=== PATIENT | female | born 1945 | race Two or more races ===

== ENCOUNTER 2016-08-07 23:33 | Inpatient (IN) | payer MEDICAID, MEDICARE ==
[~2016-08-07] VITALS: Ht 152.4 cm; Wt 79.4 kg
--- NOTE | 2016-08-07 23:35 | NUR ---
PT BIB [facility] WITH A C/O N/V COMMUNITY SUPPORT ASSOCIATE. 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 PT AMBULATED WITH ASSISTANCE TO THE BATHROOM. PT WAS UNABLE TO GIVE A URINE SAMPLE. PT THEN AMBULATED TO BED #4 WITH ASSISTANCE. PT WAS ASSISTED INTO BED. PT WAS PLACED ON THE MONITOR AND CONTINUOUS PULSE OX.
[2016-08-08] VITALS (8 sets, daily range): BP systolic 99–160; BP diastolic 61–82
[2016-08-08] MEDS ORDERED: IV NS 0.9% 500 ML BAG IV ONE
[2016-08-08] MEDS ORDERED: ONDANSETRON HCL/PF 4 MG/2 ML VIAL IVP ONE
--- NOTE | 2016-08-08 00:05 | NUR ---
Albert hercules in [facility] - 08/08/16 at 0039 by JENNY IV STARTED IN LAC.
--- NOTE | 2016-08-08 00:05 | NUR ---
IV STARTED IN RAC.
--- NOTE | 2016-08-08 00:10 | NUR ---
IN AND OUT CATH DONE. APPROX 5ML CLOUDY YELLOW URINE OUTPUT NOTED.
--- NOTE | 2016-08-08 00:12 | NUR ---
PT WAS ASSISTED TO A BETTER POSITION IN BED. PT REC'D WARM BLANKETS AND OVERHEAD LIGHT WAS TURNED OFF. PT KEEPS STATING: "I HAVE TO PEE". PT IS NOT ABLE TO GIVE URINE AT THIS TIME.
[2016-08-08 00:22] LABS: BASOPHILS # (AUTO) 0.1 /CMM (0.0-0.2); BASOPHILS % (AUTO) 0.4 % (0.0-2.0); EOSINOPHILS % (AUTO) 0.2 % (0.0-6.0); HEMATOCRIT 27 % (33-45); HEMOGLOBIN 8.7 g/dL (11.5-14.8); LYMPHOCYTES # (AUTO) 1.9 /CMM (0.8-4.8); LYMPHOCYTES % (AUTO) 15.5 % (20.0-44.0); MEAN CORPUSCULAR HEMOGLOBIN 27 PG (26.0-33.0); MEAN CORPUSCULAR HGB CONC 33 g/dl (31.0-36.0); MEAN CORPUSCULAR VOLUME 81 fL (82-100); MONOCYTES # (AUTO) 0.7 /CMM (0.1-1.30); MONOCYTES % (AUTO) 5.7 % (2.0-12.0); NEUTROPHILS # (AUTO) 9.5 /CMM (1.8-8.9); NEUTROPHILS % (AUTO) 78.2 % (43.0-81.0); PLATELET COUNT (AUTO) 412 /CMM (150-450); RDW COEFFICIENT OF VARIATION 16.7 (11.5-15.0); WHITE BLOOD COUNT (AUTO) 12.2 K/uL (4.3-11.0)
--- NOTE | 2016-08-08 00:22 | NUR ---
PT LEFT FOR CT VIA RNEY
[2016-08-08] MEDS ORDERED: IV NS 0.9% 500 ML IV ONE (00:24)
[2016-08-08] MEDS ORDERED: IV SET PRIMARY 1 EA INFUS.SET MC ONE ×2 (00:24→01:29)
[2016-08-08] MEDS ORDERED: ONDANSETRON HCL/PF 4 MG/2 ML VIAL ONE (00:24)
--- NOTE | 2016-08-08 00:46 | NUR ---
PT RETURNED FROM CT.
[2016-08-08 00:50] LABS: TROPONIN I < 0.017 ng/mL (0.00-0.056)
[2016-08-08 00:53] LABS: CALCIUM, SERUM 8.3 mg/dL (8.5-10.1); CARBON DIOXIDE 20 mmol/L (21-32); CHLORIDE 102 mmol/L (98-107); CREATININE 1.9 mg/dL (0.6-1.3); GLUCOSE 124 mg/dL (74-106); POTASSIUM 3.5 mmol/L (3.5-5.1); SODIUM SERUM 135 mmol/L (136-145); UREA NITROGEN, BLOOD 24 mg/dL (7-18)
[2016-08-08 00:56] LABS: ALANINE AMINOTRANSFERASE 18 U/L (12-78); ALBUMIN 2.6 g/dL (3.4-5.0); ALKALINE PHOSPHATASE 126 U/L (46-116); ASPARTATE AMINOTRANSFERASE 15 U/L (15-37); BILIRUBIN,DIRECT 0.1 mg/dL (0.0-0.2); BILIRUBIN,TOTAL 0.3 mg/dL (0.2-1.0); LIPASE 79 U/L (73-393); TOTAL PROTEIN, SERUM 6.6 g/dL (6.4-8.2)
--- NOTE | 2016-08-08 01:00 | NUR ---
PT IS VERY RESTLESS. PT IS ON THE MONITOR AND CONTINUOUS PULSE OX.
[2016-08-08 01:23] LABS: APPEARANCE,URINE SL CLOUDY (CLEAR); BILIRUBIN,URINE NEGATIVE (NEGATIVE); BLOOD, URINE NEGATIVE Ery/uL (NEGATIVE); COLOR,URINE YELLOW (YELLOW); KETONES,URINE NEGATIVE (NEGATIVE); LEUKOCYTE ESTERASE ,URINE 2+ (NEGATIVE); NITRITE, URINE NEGATIVE (NEGATIVE); PH,URINE 5.5 (5.0-8.0); PROTEIN,URINE 1+ mg/dl (NEGATIVE); UGLUCOSE NEGATIVE (NEGATIVE); UROBILINOGEN,URINE 0.2 EU/dL (0.2)
[2016-08-08 01:29] LABS: BACTERIA,URINE 3+ /HPF (None Seen); RBC,URINE NONE SEEN /HPF (0-2); SQUAMOUS EPITHELIAL CELL,UR Moderate /HPF (None Seen); WBC,URINE TOO NUMEROUS TO COUN /HPF (0-3)
[2016-08-08] MEDS ORDERED: CEFTRIAXONE 1GM BAG (ER ONLY) 50 ML IV ONE (01:29)
[2016-08-08] MEDS ORDERED: ACET-284 PO (01:36)
[2016-08-08] MEDS ORDERED: ZOLP5TAB7 PO (01:36)
[2016-08-08] MEDS ORDERED: GLIP10TA11 PO (01:36)
[2016-08-08] MEDS ORDERED: QUET300T2 PO (01:36)
[2016-08-08] MEDS ORDERED: AMLO10TA2 PO (01:36)
[2016-08-08] MEDS ORDERED: LABE200T PO (01:36)
[2016-08-08] MEDS ORDERED: LORA1TAB PO (01:36)
--- NOTE | 2016-08-08 01:36 | NUR ---
PT APPEARS TO BE RESTING COMFORTABLY WITH NO S/S OF PAIN OR DISTRESS.
--- NOTE | 2016-08-08 01:40 | NUR ---
PIGMENT SUPPLIER IS AT THE BEDSIDE TO DRAW BLOOD CULTURES
--- NOTE | 2016-08-08 01:55 | NUR ---
NURSING NOTES: NEW ADMISSION FROM ER, ACCOMPANIED BY RN TRANSPORTED VIA GURNEY ON HEAD MEN'S GOLF COACH, TELE MONITORING, SINUS RHYTHM-79,REGULAR,CAME WITH C/C OF NAUSEA AND VOMITING FOR 2 DAYS, LEGALLY BLIND, ABLE TO MAKE NEEDS KNOWN, A/OX1 CONFUSED,DIAGNOSIS:UTI,STARTED ON ROCEPHINE,RECEIVED NORMAL SALINE AND ONDANSETRON FROM ER;RIGHT AC GAUGE 18 INTACT AND PATENT.BODY ASSESSMENT DONE, SKIN INTACT, NO SKIN PROBLEM NOTED AT THIS TIME,ORIENTED TO UNIT AND STAFF. CALL LIGHT WITH IN EASY REACH,FALL, SAFETY AND ASPIRATION PRECAUTION OBSERVE,BED LOW AND LOCKED.
[2016-08-08] MEDS ORDERED: CEFTRIAXONE 1GM BAG (ER ONLY) 1 GM/50 ML PIGGYBACK IV ONE (02:00)
[2016-08-08] MEDS ORDERED: ONDANSETRON HCL/PF 4 MG/2 ML VIAL IVP PRN (06:30)
[2016-08-08] MEDS ORDERED: ACETAMINOPHEN 325 MG TABLET PO PRN (06:30)
[2016-08-08] MEDS ORDERED: BISACODYL SUPP (10 MG) 10 MG/SUPP.RECT SUPP.RECT RC PRN (06:30)
--- NOTE | 2016-08-08 06:45 | NUR ---
RN NOTES: ASLEEP IN THE NIGHT, KEPT ON CLOSE VISUAL CHECK, HIGH RISK FOR FALL,PATIENT IS INCONTINENT NEEDS ATTENDED, F/U WITH SANDRITA(PHARMACY) REGARDING MORNING DOSE OF ROCEPHIN, SHE SAID ITS VERY CLOSE INTERVAL TO GIVE RIGHT NOW, ENDORSED TO NEXT SHIFT FOR CONTINUITY OF CARE.NO SIGN OF RESPIRATORY DISTRESS NOTED.CALL LIGHT WITHIN EASY REACH.
[2016-08-08] MEDS: PANTOPRAZOLE 40 MG TABLET.DR PO SCH (07:30)
[2016-08-08 08:24] LABS: BASOPHILS # (AUTO) 0.1 /CMM (0.0-0.2); BASOPHILS % (AUTO) 0.7 % (0.0-2.0); EOSINOPHILS # (AUTO) 0.2 /CMM (0.0-0.7); EOSINOPHILS % (AUTO) 1.8 % (0.0-6.0); HEMATOCRIT 27 % (33-45); HEMOGLOBIN 8.8 g/dL (11.5-14.8); LYMPHOCYTES # (AUTO) 1.9 /CMM (0.8-4.8); LYMPHOCYTES % (AUTO) 19.6 % (20.0-44.0); MEAN CORPUSCULAR HEMOGLOBIN 27 PG (26.0-33.0); MEAN CORPUSCULAR HGB CONC 33 g/dl (31.0-36.0); MEAN CORPUSCULAR VOLUME 81 fL (82-100); MONOCYTES # (AUTO) 0.8 /CMM (0.1-1.30); MONOCYTES % (AUTO) 8.7 % (2.0-12.0); NEUTROPHILS # (AUTO) 6.6 /CMM (1.8-8.9); NEUTROPHILS % (AUTO) 69.2 % (43.0-81.0); PLATELET COUNT (AUTO) 384 /CMM (150-450); RDW COEFFICIENT OF VARIATION 17.1 (11.5-15.0); WHITE BLOOD COUNT (AUTO) 9.6 K/uL (4.3-11.0)
[2016-08-08 08:31] LABS: CALCIUM, SERUM 8.1 mg/dL (8.5-10.1); CREATININE 1.5 mg/dL (0.6-1.3); POTASSIUM 3.9 mmol/L (3.5-5.1)
[2016-08-08 08:37] LABS: ALBUMIN 2.4 g/dL (3.4-5.0); BILIRUBIN,TOTAL 0.2 mg/dL (0.2-1.0); PHOSPHORUS 3.5 mg/dL (2.5-4.9); TOTAL PROTEIN, SERUM 6.2 g/dL (6.4-8.2)
[2016-08-08 08:53] LABS: MAGNESIUM 1.2 mg/dL (1.8-2.4)
[2016-08-08] MEDS: DOCUSATE SODIUM 100 MG CAPSULE PO SCH ×2 (09:00→16:55)
[2016-08-08] MEDS: MORPHINE SULFATE INJ 2 MG/ML DISP.SYRIN IV PRN ×2 (10:00→16:51)
[2016-08-08] MEDS: LORAZEPAM INJ 2 MG/ML VIAL IV PRN ×2 (10:00→16:51)
--- NOTE | 2016-08-08 10:16 | NUR ---
PT VERY RESTLESS AND CONFUSED WITH CARE.PT IS BLIND.PT KEEPS SCREAMING WANTING TO GO TO THE TOILET AND BY THE TIME THE PT WAS ASSISTED TO THE TOILET,THE PT WANTED TO GO BACK TO BED AND REFUSED TO VOID.PT VOIDED IN HER DIAPER WHILE IN THE TOILET WANTING TO GO BACK TO BED RIGHT AWAY.ASSISTED TO THE BED BUT UNCOOPERATIVE WANTING TO WALK ON HER OWN TO THE BED REFUSING TO BE ASSISTED.PT WHILE IN BED LAY DOWN ON THE FOOT OF THE BED PUTTING HER HIGH RISK FOR FALL.TRIED TO REPOSITIONED PT FOR SAFETY BUT IS UNCOOPERATIVE AND WAS FIGHTING, SCREAMING,HITTING AND DIGGING HER NAILS ON THE STAFF.ATIVAN 0.5 MG IV AND MORPHINE SULFATE 1 MG IV GIVEN.
[2016-08-08] MEDS ORDERED: IV SET PRIMARY PUMP SET 1 EA INFUS.SET MC ONE (11:37)
[2016-08-08] MEDS: Magnesium 1GM/D5W 100ML PREMIX 100 ML IV SCH ×2 (11:45→12:35)
--- NOTE | 2016-08-08 11:58 | NUR ---
PICKLING MACHINE OPERATOR AM NOTES: RECEIVED PT ALERT AND CONFUSED.TRYING TO GET OOB.HIGH RISK FOR FALLS.PT NON COOPERATIVE.ON TELE MONITORING, SINUS RHYTHM-79,REGULAR,LEGALLY BLIND, ABLE TO MAKE NEEDS KNOWN, A/OX1 CONFUSED,WITH RIGHT AC GAUGE 18 INTACT AND PATENT.SKIN INTACT,ORIENTED TO UNIT AND STAFF. CALL LIGHT WITH IN EASY REACH,FALL, SAFETY AND ASPIRATION PRECAUTION OBSERVE,BED IN LOW POSITION AND LOCKED AT ALL TIMES.ON BED ALARM.WILL ASK CHARGE NURSE FOR A SITTER.
[2016-08-08] MEDS: Potassium Chloride 20 MEQ in IV NS 0.9% 1,000 ML IV PRN (12:36)
--- NOTE | 2016-08-08 17:32 | NUR ---
PT OCCASIONALLY RESTLESS BUT LESS COMBATIVE,KICKING AND SCREAMING COMPARED EARLIER.ATIVAN 0.5 MG IV AND MORPHINE SULFATE 1 MG IV GIVEN WITH EFFECTIVE RESULT.WITH 1:1 SITTER AT BEDSIDE.REFUSED ORAL MEDS.NO N/V EPISODE DURING THE SHIFT.WILL CONTINUE TO MONITOR.
--- NOTE | 2016-08-08 20:30 | NUR ---
MS/DICER MACHINE OPERATOR; RECEIVED PT IN BED AWAKE, CONFUSED. BREATHING NON LABORED. IVF ON PROGRESS. BED ON LOWER POSITION AND LOCKED FOR SAFETY. SIDE RAILS ARE UP FOR SAFETY. SITTER PRESENT AT THE BEDSIDE. NO N/V NOTED. DENIES PAIN. CONTINUE TO MONITOR. CALL LIGHT WITHIN REACH.
[2016-08-09] MEDS ORDERED: SECONDARY IV SET 1 EA INFUS.SET MC ONE (00:04)
[2016-08-09] MEDS: CEFTRIAXONE 1 G in IV D5W 50 ML IV SCH (00:11)
[2016-08-09] MEDS: MORPHINE SULFATE INJ 2 MG/ML DISP.SYRIN IV PRN (02:18)
--- NOTE | 2016-08-09 06:45 | NUR ---
MS/TUBE MOUNTER; I PLACED A CALL TO DR. KELLEY RE PT 'S BP 170 91 , P 86 ON LA; ON THE RA BP 181/ 98 , P 84. HE ORDERED METROPOLOL 25 MG PO Q12 CHARGE NURSE INFORMED.
[2016-08-09] MEDS ORDERED: METOPROLOL TARTRATE 25 MG TABLET ONE (06:48)
[2016-08-09] MEDS: METOPROLOL TARTRATE 25 MG TABLET PO SCH ×3 (06:53→22:08)
--- NOTE | 2016-08-09 07:00 | NUR ---
TELE/SEALER AIRCRAFT; PT REFUSED METROPOLOL AND CHARGE NURSE INFORMED. PT ON SR 86. AWAKE MOST OF THE NIGHT . CONFUSED. MORNING BATH GIVEN BY THE SITTER. VOIDED IN THE BATHROOM AND ALSO INCONTINENT. IVF ON PROGRESS. WILL ENDORSE TO THE DAY SHIFT NURSE.
--- NOTE | 2016-08-09 08:00 | NUR ---
MS RN RECEIVED ON BED, AWAKE,VERY CONFUSED,NOT IN ANY FORM OF DISTRESS, RESPIRATIONS EVEN AND UNLABORED,NO SOB NOTED. LUNGS ARE CLEAR, ABDOMEN SOFT,POSITIVE BOWEL SOUNDS, DENIES PAIN AT THIS TIME, ON ONE ON ONE SITTER FOR SAFETY.
[2016-08-09] MEDS: DOCUSATE SODIUM 100 MG CAPSULE PO SCH ×2 (09:00→10:30)
--- NOTE | 2016-08-09 09:00 | NUR ---
MS RN REFUSED BREAKFAST, WAS ABLE TO TAKE MEDS, REMOVED HER IV, WILL REINSERT LATER.
[2016-08-09] MEDS: PANTOPRAZOLE 40 MG TABLET.DR PO SCH (09:18)
--- NOTE | 2016-08-09 10:00 | NUR ---
MS/RN Labs Morning labs reviewed: -mag 1.5
--- NOTE | 2016-08-09 10:26 | NUR ---
MS/RN S/B Dr Jack Seen by Dr Jack - continue with antibiotic therapy, check mag level and replace as necessary.
--- NOTE | 2016-08-09 12:00 | NUR ---
MS RN WAS SEEN BY DR. ALAN, W/ ORDERS MADE AND CARRIED OUT.
[2016-08-09] MEDS ORDERED: LOPERAMIDE HCL UDC(2 MG/10 ML) 2 MG/10 ML UDC PO PRN (12:30)
--- NOTE | 2016-08-09 15:00 | NUR ---
ms rn patient repeatedly removing her iv lines, patient placed on soft wrist restrain, malcolm was notified.
[2016-08-09] MEDS ORDERED: IV SET PRIMARY PUMP SET 1 EA INFUS.SET MC ONE (15:23)
[2016-08-09] MEDS: Magnesium 1GM/D5W 100ML PREMIX 100 ML IV SCH ×4 (15:33→20:24)
[2016-08-09] MEDS: Potassium Chloride 20 MEQ in IV NS 0.9% 1,000 ML IV PRN (15:33)
[2016-08-09] MEDS: LABETALOL HCL (100MG) 100 MG TABLET PO SCH ×2 (15:40→22:09)
--- NOTE | 2016-08-09 16:00 | NUR ---
ms rn was transferred to room 326 bed 1, all needs attended.
--- NOTE | 2016-08-09 19:05 | NUR ---
ms rn on bed, no distress noted,still on restrain,denies pain at this time,
--- NOTE | 2016-08-09 19:30 | NUR ---
RN NOTES RECEIVED PT AWAKE ON BED, SR ON TELE MONITOR HR-82, PT IS SCRATCHING . PT HAS BILATERAL SOFT WRIST RESTRAINT, CIRCULATION IS GOOD, SIDERAILS IPX2 CONTINUE TO MONITOR
[2016-08-09 20:00] VITALS: BP 146/96
[2016-08-09] MEDS: QUETIAPINE FUMARATE 100 MG TABLET PO SCH (22:09)
[2016-08-10] VITALS: BP 147/75
[2016-08-10] MEDS: CEFTRIAXONE 1 G in IV D5W 50 ML IV SCH (01:19)
[2016-08-10 04:45] VITALS: BP 158/81
--- NOTE | 2016-08-10 06:22 | NUR ---
RN NOTES AWAKE, MORNING CARE RENDERED, LUBNA ASIF PT COMFORTABLE, SIDERAILS UPX2 PT. NEEDS ATTENDED. ENDORSED TO DAYSHIFT NURSE FOR CONTINUITY OF CARE
--- NOTE | 2016-08-10 07:30 | NUR ---
AM RN NOTE Received pt sleeping comfortably in her bed, no acute distress noted. IV site intact and patent. 1:1 sitter @ pt's side. Bed in low locked position. Will continue to monitor.
[2016-08-10 08:00] VITALS: BP 150/75
[2016-08-10] MEDS: DOCUSATE SODIUM 100 MG CAPSULE PO SCH ×2 (08:10→16:23)
[2016-08-10] MEDS: METOPROLOL TARTRATE 25 MG TABLET PO SCH ×2 (08:11→21:15)
[2016-08-10] MEDS: LABETALOL HCL (100MG) 100 MG TABLET PO SCH ×2 (08:11→21:15)
[2016-08-10] MEDS: AMLODIPINE BESYLATE 10 MG TABLET PO SCH (08:11)
[2016-08-10] MEDS: PANTOPRAZOLE 40 MG TABLET.DR PO SCH (08:14)
[2016-08-10] MEDS: Potassium Chloride 20 MEQ in IV NS 0.9% 1,000 ML IV PRN (09:59)
[2016-08-10 10:33] LABS: CALCIUM, SERUM 8.3 mg/dL (8.5-10.1); CREATININE 1.2 mg/dL (0.6-1.3); MAGNESIUM 1.8 mg/dL (1.8-2.4); POTASSIUM 4.4 mmol/L (3.5-5.1)
--- NOTE | 2016-08-10 15:48 | NUR ---
AM RN NOTE Patient's IV site noted with leakage, re-inserted new site on RFA #22.
[2016-08-10 16:12] VITALS: BP 117/71
--- NOTE | 2016-08-10 18:35 | NUR ---
AM RN NOTE Patient lying in her bed, no acute distress noted. IV site intact and patent. 1:1 sitter @ pt's side. Will endorse care to next shift.
--- NOTE | 2016-08-10 19:00 | NUR ---
MS RN INITIAL NOTE PT RECEIVED IN BED, A/O X 1, SITTER AT BEDSIDE, IV SITE INTACT WITH NO S/S OF INFILTRATION NOTED. NO S/S OF RESPIRATORY DISTRESS OR SOB. SAFE ENVIRONMENT PROVIDED FREE OF CLUTTERS. BED IN LOCKED, LOW POSITION. CALL LIGHT WITHIN EASY REACH. WILL CONTINUE TO MONITOR
[2016-08-10 20:00] VITALS: BP 159/77
[2016-08-10] MEDS: QUETIAPINE FUMARATE 100 MG TABLET PO SCH (21:16)
[2016-08-11] MEDS: CEFTRIAXONE 1 G in IV D5W 50 ML IV SCH (00:34)
[2016-08-11] MEDS: LORAZEPAM INJ 2 MG/ML VIAL IV PRN ×2 (00:34→12:13)
--- NOTE | 2016-08-11 06:27 | NUR ---
MS RN CLOSING NOTES PATIENT COMFORTABLY ASLEEP AND EASILY AWAKEN, HEAD OF BED ELEVATED FOR BETTER LUNG EXPANSION, IV SITE NO S/S OF INFILTRATED, ON ATB WITH NO A/R NOTED. RESPIRATIONS EVEN AND UNLABORED. LUNG SOUNDS CLEAR UPON AUSCULTATION, NO S/S OF ACUTE DISTRESS, NO SOB, NO COUGH, NO CONGESTION, SKIN WARM AND DRY TO TOUCH, AFEBRILE, 1:1 SITTER, ALL NURSING CARE NEEDS PROVIDED AND RENDERED, NEEDS ATTENDED AND ANTICIPATED, KEPT CLEAN AND DRY AND COMFORTABLE, BLADDER NOT DISTENDED, GOOD SKIN CARE PROVIDED. ABDOMEN SOFT AND NON TENDER. ALL DUE MEDS WAS GIVEN TOLERATED. FREQUENT VISUAL CHECK DONE FOR SAFETY EVERY 2 HOURS. REPOSITIONED EVERY 2 HOURS FOR COMFORT AND SKIN MGT. SAFE HAZARD FREE ENVIRONMENT PROVIDED. CALL LIGHT WITHIN EASY TO REACH, ON LOW BED AT ALL TIMES TO ENSURE SAFETY, WILL ENDORSE TO THE NEXT SHIFT CONTINUE PLAN OF CARE. CHECK CIRCULATION OF THE BILATERAL WRIST SOFT RESTRAINT PER PROTOCOL.
--- NOTE | 2016-08-11 06:32 | NUR ---
PATIENT INFUSING NS W/KCL 20 MEQ 75 MLS/HR RUNNING AND TOLERATED WELL.
--- NOTE | 2016-08-11 07:21 | NUR ---
AM RN NOTE Received pt sleeping comfortably in her bed, no acute distress noted. IV site intact and patent. Masood soft wrist restraints on and 1:1 sitter @ pt's side. Bed in low locked position. Will continue to monitor.
[2016-08-11 08:00] VITALS: BP 158/84
[2016-08-11] MEDS: METOPROLOL TARTRATE 25 MG TABLET PO SCH ×2 (08:11→21:15)
[2016-08-11] MEDS: LABETALOL HCL (100MG) 100 MG TABLET PO SCH ×2 (08:11→21:15)
[2016-08-11] MEDS: DOCUSATE SODIUM 100 MG CAPSULE PO SCH ×2 (08:11→16:07)
[2016-08-11] MEDS: AMLODIPINE BESYLATE 10 MG TABLET PO SCH (08:11)
[2016-08-11] MEDS: PANTOPRAZOLE 40 MG TABLET.DR PO SCH (08:11)
--- NOTE | 2016-08-11 12:15 | NUR ---
AM RN NOTE Patient awake, verbally abusive, trying to get up from bed even with pamela soft wrist on. Ativan PRN IV given as ordered. 1:1 sitter @ side. Will continue to monitor.
[2016-08-11 12:20] LABS: BASOPHILS # (AUTO) 0.2 /CMM (0.0-0.2); BASOPHILS % (AUTO) 1.5 % (0.0-2.0); EOSINOPHILS # (AUTO) 0.2 /CMM (0.0-0.7); EOSINOPHILS % (AUTO) 2.3 % (0.0-6.0); HEMATOCRIT 28 % (33-45); LYMPHOCYTES # (AUTO) 2.1 /CMM (0.8-4.8); LYMPHOCYTES % (AUTO) 19.9 % (20.0-44.0); MEAN CORPUSCULAR HEMOGLOBIN 26 PG (26.0-33.0); MEAN CORPUSCULAR HGB CONC 32 g/dl (31.0-36.0); MEAN CORPUSCULAR VOLUME 81 fL (82-100); MONOCYTES # (AUTO) 0.7 /CMM (0.1-1.30); MONOCYTES % (AUTO) 7.2 % (2.0-12.0); NEUTROPHILS # (AUTO) 7.1 /CMM (1.8-8.9); NEUTROPHILS % (AUTO) 69.1 % (43.0-81.0); PLATELET COUNT (AUTO) 402 /CMM (150-450); RDW COEFFICIENT OF VARIATION 16.7 (11.5-15.0); RED BLOOD CELL COUNT(AUTO) 3.44 MIL/uL (4.0-5.2); WHITE BLOOD COUNT (AUTO) 10.3 K/uL (4.3-11.0)
[2016-08-11 12:37] LABS: CALCIUM, SERUM 8.8 mg/dL (8.5-10.1); CREATININE 1.1 mg/dL (0.6-1.3); MAGNESIUM 1.4 mg/dL (1.8-2.4); PHOSPHORUS 2.3 mg/dL (2.5-4.9); POTASSIUM 4.6 mmol/L (3.5-5.1)
[2016-08-11] MEDS ORDERED: K PHOS NEUTRAL 250 MG TABLET PO ONE (15:30)
[2016-08-11 16:00] VITALS: BP 162/93
[2016-08-11] MEDS: Potassium Chloride 20 MEQ in IV NS 0.9% 1,000 ML IV PRN (16:08)
--- NOTE | 2016-08-11 18:44 | NUR ---
AM RN NOTE Patient resting in her bed, 1:1 sitter @ bedside. Will continue to monitor.
--- NOTE | 2016-08-11 19:00 | NUR ---
MS RN INITIAL NOTE PT RECEIVED IN BED, A/O X 1, 1:1 SITTER AT BEDSIDE, IV SITE INTACT WITH NO S/S OF INFILTRATION NOTED. NO S/S OF RESPIRATORY DISTRESS OR SOB. SAFE ENVIRONMENT PROVIDED FREE OF CLUTTERS. BED IN LOCKED, LOW POSITION. CALL LIGHT WITHIN EASY REACH. WILL CONTINUE TO MONITOR.
[2016-08-11 20:00] VITALS: BP 159/83
[2016-08-11] MEDS: QUETIAPINE FUMARATE 100 MG TABLET PO SCH (21:15)
[2016-08-12] MEDS: CEFTRIAXONE 1 G in IV D5W 50 ML IV SCH (00:12)
--- NOTE | 2016-08-12 06:28 | NUR ---
MS RN CLOSING NOTES PATIENT COMFORTABLY ASLEEP AND EASILY AWAKEN, ON ATB WITH NO A/R NOTED. IV SITE NO S/S OF INFILTRATED , LFA 22 NS + 20 MEQ OF LCL RUNNING AT 75CC/HR. RESPIRATIONS EVEN AND UNLABORED. LUNG SOUNDS CLEAR UPON AUSCULTATION, NO S/S OF ACUTE DISTRESS, NO SOB, NO COUGH, NO CONGESTION, SKIN WARM AND DRY TO TOUCH, AFEBRILE, ALL NURSING CARE NEEDS PROVIDED AND RENDERED, NEEDS ATTENDED AND ANTICIPATED, KEPT CLEAN AND DRY AND COMFORTABLE, BLADDER NOT DISTENDED, GOOD SKIN ARE PROVIDED. ALL DUE MEDS WAS GIVEN TOLERATED. FREQUENT VISUAL CHECK DONE FOR SAFETY EVERY 2 HOURS. REPOSITIONED EVERY 2 HOURS FOR COMFORT AND SKIN MGT. SAFE HAZARD FREE ENVIRONMENT PROVIDED. CALL LIGHT WITHIN EASY TO REACH, ON LOW BED AT ALL TIMES TO ENSURE SAFETY, WILL ENDORSE TO THE NEXT SHIFT CONTINUE PLAN OF CARE., ON 1:1 SITTER Addendum: 08/12/16 at 0630 by BYRON BREWER RN ADDENDUM: SOLEDAD
[2016-08-12 07:19] LABS: CALCIUM, SERUM 8.7 mg/dL (8.5-10.1); MAGNESIUM 1.3 mg/dL (1.8-2.4); PHOSPHORUS 2.8 mg/dL (2.5-4.9)
--- NOTE | 2016-08-12 07:30 | NUR ---
AM RN NOTE Received patient awake lying in her bed. No acute distress noted. Resp even and non-labored. Skin warm and dry to touch. IV site intact and patent. Bed in low locked position. 1:1 sitter @ pt's side. Will continue to monitor.
[2016-08-12 08:20] LABS: HEMATOCRIT 26 % (33-45); HEMOGLOBIN 8.7 g/dL (11.5-14.8); MEAN CORPUSCULAR HEMOGLOBIN 27 PG (26.0-33.0); MEAN CORPUSCULAR HGB CONC 33 g/dl (31.0-36.0); MEAN CORPUSCULAR VOLUME 80 fL (82-100); PLATELET COUNT (AUTO) 415 /CMM (150-450); RDW COEFFICIENT OF VARIATION 15.3 (11.5-15.0); RED BLOOD CELL COUNT(AUTO) 3.25 MIL/uL (4.0-5.2); WHITE BLOOD COUNT (AUTO) 8.6 K/uL (4.3-11.0)
--- NOTE | 2016-08-12 09:20 | NUR ---
AM RN NOTE Patient sleeping comfortably in her bed, refused to take medications.
[2016-08-12 10:57] LABS: BASOPHILS % (MANUAL) 1 % (0.0-2.0); EOSINOPHILS % (MANUAL) 9 % (0-4); LYMPHOCYTES % (MANUAL) 16 % (16-48); MONOCYTES % (MANUAL) 5 % (0-11.0); NEUTROPHILS % (MANUAL) 69 (42-76)
[2016-08-12] MEDS: AMLODIPINE BESYLATE 10 MG TABLET PO SCH (11:00)
[2016-08-12] MEDS: METOPROLOL TARTRATE 25 MG TABLET PO SCH ×3 (11:00→21:30)
[2016-08-12] MEDS: LABETALOL HCL (100MG) 100 MG TABLET PO SCH ×3 (11:00→21:30)
[2016-08-12] MEDS: PANTOPRAZOLE 40 MG TABLET.DR PO SCH (11:00)
[2016-08-12] MEDS: DOCUSATE SODIUM 100 MG CAPSULE PO SCH ×3 (11:00→17:16)
--- NOTE | 2016-08-12 11:08 | NUR ---
AM RN NOTE Patient sleeping comfortably in her bed. 1:1 sitter @ bedside. Dr. Edmondson did her rounds, made aware that pt refused to her medications/ breakfast due to sleep. New order given by Dr. Edmondson to discontinue Ativan, noted and carried out. Will continue to monitor.
[2016-08-12] MEDS ORDERED: Magnesium 1GM/D5W 100ML PREMIX 100 ML IV SCH (11:25)
[2016-08-12] MEDS ORDERED: SECONDARY IV SET 1 EA INFUS.SET MC ONE (11:35)
[2016-08-12] MEDS ORDERED: MAGNESIUM OXIDE 400 MG TABLET PO ONE (12:00)
--- NOTE | 2016-08-12 12:10 | NUR ---
AM RN NOTE Patient awake, attempted to start Mg IV piggybag, pt pulled out her IV and became very anxious and resistive. Notified CN (Ethel) unable to insert new site. Mg dose changed to PO per CN and Eren (Pharmacist). Medication given to pt at this time with pudding with lots of prompting.
--- NOTE | 2016-08-12 12:38 | NUR ---
AM RN NOTE Notified DR. Edmondson that pt pulled out her IV and unable to insert new site at this time. New order for Mg PO given by Dr. Edmondson noted and carried out.
--- NOTE | 2016-08-12 15:20 | NUR ---
AM RN NOTE Pt lying in her bed, attempted to insert new IV site but pt started to resist with insertion, unable to insert at this time. Will re-attempt later.
--- NOTE | 2016-08-12 16:50 | NUR ---
AM RN NOTE Patient calm at this time,inserted new IV site in left hand #22 as assisted by other nursing staff. Left msg for Dr. Edmondson that IV inserted and if she wants to change Mg PO to IV, awaiting for response. 1:1 sitter @ pt's side. Will continue to monitor.
--- NOTE | 2016-08-12 17:15 | NUR ---
ADORE RN NOTE New Mg IV orders noted per ([facility]) pharmacy/ Dr. Edmondson.
[2016-08-12] MEDS: MAGNESIUM OXIDE 400 MG TABLET PO SCH (17:16)
[2016-08-12] MEDS: Magnesium 1GM/D5W 100ML PREMIX 100 ML IV SCH ×2 (17:49→19:18)
--- NOTE | 2016-08-12 18:17 | NUR ---
AM RN NOTE Patient lying in her bed, no acute distress noted. IV site intact and patent, Mg IV continue as ordered. 1:1 sitter @ pt's side. Will endorse care to next5 shift.
--- NOTE | 2016-08-12 19:40 | NUR ---
MS RN NOTE RECEIVED PATIENT FROM DAY SHIFT, PATIENT IS ALERT AND ORIENTEDX1, CONFUSED, MAKES NOISE SOMETIMES. 1:1 SITTER PRESENT FOR BEHAVIOR OBSERVATION. IV ON LEFT HAND IS PATENT AND INTACT, RUNNING FLUID. SRX2, BED IN LOW POSITION, CALL LIGHT WITHIN REACH, WILL CONTINUE TO MONITOR PATIENT.
[2016-08-12 20:00] VITALS: BP 148/82
[2016-08-12] MEDS: QUETIAPINE FUMARATE 100 MG TABLET PO SCH ×2 (21:02→22:30)
[2016-08-12] MEDS: Potassium Chloride 20 MEQ in IV NS 0.9% 1,000 ML IV PRN (21:02)
--- NOTE | 2016-08-12 22:30 | NUR ---
MS RN NOTE PATIENT REFUSED TO TAKE NIGHT MEDS, KEPT TRYING TO GIVE WITH APPLE SAUCE, PATIENT SPITTED IT OUT, CURSED TO THE STAFFS. WASTED IN PYXIS.
[2016-08-13] MEDS: CEFTRIAXONE 1 G in IV D5W 50 ML IV SCH (00:18)
--- NOTE | 2016-08-13 06:38 | NUR ---
MS RN NOTE PATIENT IS RESTING IN BED WITH 1:1 SITTER. NO ACUTE EVENT NOTED DURING THE COMPUTER COMPOSITOR. WILL ENDORSE TO DAY SHIFT NURSE FOR BALTAZAR.
--- NOTE | 2016-08-13 07:30 | NUR ---
MS RN AM NOTES PT IN BED, AAOX 2, CONFUSED, LEGALLY BLIND, VERY UNCOOPERATIVE AND VERBALLY ABUSIVE, SITTER AT BEDSIDE, PRESENT FOR BEHAVIOR OBSERVATION. DENIES ANY PAIN, IV ON LEFT HAND 22G, WITH NS + 20 MEQ KCL RUNNING AT 75 ML/HR, SITE CLEAR, MARISA SOFT WRIST RESTRAINT IN PLACE, CHECKED FOR CIRCULATION, ON SOFT DIET. SRX2, BED IN LOW POSITION, CALL LIGHT WITHIN REACH, WILL CONTINUE TO MONITOR PATIENT.
[2016-08-13 07:39] LABS: CALCIUM, SERUM 8.5 mg/dL (8.5-10.1); CREATININE 0.9 mg/dL (0.6-1.3); MAGNESIUM 1.8 mg/dL (1.8-2.4); POTASSIUM 4.2 mmol/L (3.5-5.1)
[2016-08-13 08:00] VITALS: BP 157/80
[2016-08-13] MEDS: DOCUSATE SODIUM 100 MG CAPSULE PO SCH (08:31)
[2016-08-13] MEDS: METOPROLOL TARTRATE 25 MG TABLET PO SCH (08:31)
[2016-08-13] MEDS: MAGNESIUM OXIDE 400 MG TABLET PO SCH (08:31)
[2016-08-13] MEDS: PANTOPRAZOLE 40 MG TABLET.DR PO SCH (08:31)
[2016-08-13] MEDS: LABETALOL HCL (100MG) 100 MG TABLET PO SCH (08:32)
[2016-08-13] MEDS: AMLODIPINE BESYLATE 10 MG TABLET PO SCH (08:32)
--- NOTE | 2016-08-13 09:30 | NUR ---
MS RN NOTES ADMINISTERED DUE MEDS.
[2016-08-13] MEDS ORDERED: METO25TA20 PO (12:05)
[2016-08-13] MEDS ORDERED: CEFA1SYR IV (12:16)
--- NOTE | 2016-08-13 15:12 | NUR ---
MS RN NOTES PER DR. FREEMAN, PT CAN GO BACK TO FACILITY. WITH [facility] TO FOLLOW UP ON PATIENT. AWAITING CALL FOR TIME OF JAVA LEAD.
[2016-08-13 15:42] VITALS: BP 170/107
--- NOTE | 2016-08-13 15:50 | NUR ---
MS RN DC NOTES PATIENT TO BE DISCHARGED TO [facility] FACILITY WITH [facility] PER MD IN STABLE CONDITION. PROVIDED DC INSTRUCTIONS, HEALTH TEACHINGS AND MED RECON LIST. PATIENT PATIENT TO BE FOLLOWED BY MD PER HOSPICE PROTOCOL. LEFT HAND 2G IV ACCESS REMOVED, CATH TIP COMPLETE, NO BLEEDING, DRESSING IN PLACE. ALL BELONGINGS CHECKED AND RETURNED. ALL PAPERWORKS SIGNED. PT WILL BE PICKED BY AMBULANCE FROM HOSPICE AT 1600.
[2016-08-13] MEDS ORDERED: AMLODIPINE BESYLATE 10 MG TABLET PO ONE (16:00)
--- NOTE | 2016-08-13 16:25 | NUR ---
MS RN NOTES PATIENT PICKED UP BY AMBULANCE CREW. REPORT GIVEN TO THEM.
== END 2016-08-13 16:50 | disposition home or self-care (01) | DRG 463 ==
LOC: ER 23:34 → TELE 08-08 01:43 → MED 08-10 06:49
PROVIDERS: ADMIT Internal Medicine; ATTEND Internal Medicine
DX: N39.0 Urinary tract infection, site not specified (principal); N17.0 Acute kidney failure with tubular necrosis; G93.41 Metabolic encephalopathy; E44.0 Moderate protein-calorie malnutrition; F03.90 Unspecified dementia, unspecified severity, without behavioral disturbance, psychotic disturbance, mood disturbance, and anxiety; I12.9 Hypertensive chronic kidney disease with stage 1 through stage 4 chronic kidney disease, or unspecified chronic kidney disease; E11.22 Type 2 diabetes mellitus with diabetic chronic kidney disease; E86.0 Dehydration; K52.9 Noninfective gastroenteritis and colitis, unspecified; N18.9 Chronic kidney disease, unspecified; D63.8 Anemia in other chronic diseases classified elsewhere; E78.5 Hyperlipidemia, unspecified; E83.42 Hypomagnesemia; E86.9 Volume depletion, unspecified; B96.20 Unspecified Escherichia coli [E. coli] as the cause of diseases classified elsewhere; Z68.34 Body mass index [BMI] 34.0-34.9, adult; I70.90 Unspecified atherosclerosis
CPT/HCPCS: 36415; 70450-TC; 71010-TC; 80048-TC; 80053-TC; 80076-TC; 80305; 81000-TC; 83605-TC; 83690-TC; 83735-TC; 84100-TC; 84484-TC; 85025-TC; 87040-TC; 87081-TC; 87086-TC; 87186-TC; 97001-TC; A4606; J0696; J2060; J2270; J2405; J3475; J3480; J7030; J7040; J7060; Z7610